=== PATIENT | female | born 1995 | race Asian ===

== ENCOUNTER 2023-01-28 08:20 | Emergency (ER) | payer OTHER ==
[~2023-01-28] VITALS: Ht 147.3 cm; Wt 60.0 kg
[2023-01-28] VITALS (17 sets, daily range): BP systolic 93–136; BP diastolic 37–99
== END 2023-01-28 12:56 | disposition home or self-care (01) | DRG 556 ==
LOC: ED 08:20
DX: M25.512 Pain in left shoulder (principal); F17.210 Nicotine dependence, cigarettes, uncomplicated; F17.290 Nicotine dependence, other tobacco product, uncomplicated; V44.5XXA Car driver injured in collision with heavy transport vehicle or bus in traffic accident, initial encounter